=== PATIENT | male | born 1965 | race Caucasian/White ===

== ENCOUNTER 2017-10-05 23:47 | Emergency (ER) | payer SELFPAY ==
[~2017-10-05] VITALS: Ht 177.8 cm; Wt 100.2 kg
[2017-10-06 00:26] VITALS: Ht 177.8 cm; Wt 100.2 kg
[2017-10-06 08:04] VITALS: BP 153/94
== END 2017-10-06 09:20 | disposition home or self-care (01) ==
LOC: ED 23:47
DX: T84.028A Dislocation of other internal joint prosthesis, initial encounter (principal); I10 Essential (primary) hypertension
CPT/HCPCS: Q0092

== ENCOUNTER 2017-10-16 15:40 | Inpatient (IN) | payer MEDICAID ==
[~2017-10-16] VITALS: Ht 180.3 cm; Wt 98.2 kg
[2017-10-16 16:49] LABS: CALCIUM 8.7 mg/dL (8.5-10.1); CARBON DIOXIDE 22.7 mmol/L (21-32); CHLORIDE SERUM 103 mmol/L (98-107); CREATININE SERUM 1.2 mg/dL (0.7-1.3); GFR1 > 60 mL/min; GLUCOSE SERUM 119 mg/dL (74-106); POTASSIUM SERUM 3.6 mmol/L (3.5-5.1); SODIUM SERUM 138 mmol/L (136-145)
[2017-10-16 16:53] LABS: ALBUMIN 3.7 g/dL (3.4-5.0); ALKALINE PHOSPHATASE 60 U/L (46-116); ALT/SGPT 20 U/L (16-63); AST/SGOT 15 U/L (15-37); BILIRUBIN TOTAL 0.69 mg/dL (0.20-1.00); TOTAL PROTEIN, SERUM 7.4 g/dL (6.4-8.2)
[2017-10-16 16:56] LABS: AMPHETAMINE QUAL UR NONE DETECTED (NEG <=1000)
[2017-10-16 16:57] LABS: BASOPHIL % 1.5 % (0-2); PLATELET COUNT 250 x10^3mcL (130-400); RED CELL DISTRIBUTION WIDTH 13.6 % (11.5-14.5)
[2017-10-16] MEDS ORDERED: LISINOPRIL10 MG PO (22:45)
[2017-10-16] MEDS ORDERED: MOT600 PO (22:46)
[2017-10-16 23:32] VITALS: BP 107/77
[2017-10-17 00:36] LABS: PHOSPHOROUS 3.1 mg/dL (2.5-4.9)
[2017-10-17 00:37] LABS: T3 TOTAL 1.35 ng/mL
[2017-10-17 00:43] LABS: FREE T4 1.42 ng/dL (0.76-1.46); FREE THYROXINE INDEX 3.9 ug/dL (1.4-4.5); T4(THYROXINE) 11.1 ug/dL (4.7-13.3)
[2017-10-17 02:01] LABS: microscopic required? YES; urine erythrocyte 1+ (NEGATIVE)
[2017-10-17 02:18] VITALS: BP 107/77
[2017-10-17 05:37] VITALS: BP 99/52
[2017-10-17 07:47] LABS: CALCIUM 8.1 mg/dL (8.5-10.1); CARBON DIOXIDE 21.2 mmol/L (21-32); CHLORIDE SERUM 103 mmol/L (98-107); CREATININE SERUM 0.9 mg/dL (0.7-1.3); GFR1 > 60 mL/min; GLUCOSE SERUM 114 mg/dL (74-106); MAGNESIUM 1.8 mg/dL (1.8-2.4); PHOSPHOROUS 3.1 mg/dL (2.5-4.9); POTASSIUM SERUM 3.7 mmol/L (3.5-5.1); SODIUM SERUM 135 mmol/L (136-145)
[2017-10-17 07:59] LABS: BASOPHIL % 0.6 % (0-2); PLATELET COUNT 193 x10^3mcL (130-400); RED CELL DISTRIBUTION WIDTH 13.9 % (11.5-14.5)
[2017-10-17 08:09] VITALS: BP 122/76
[2017-10-17 14:00] VITALS: BP 157/91
[2017-10-17 17:34] VITALS: BP 121/71
[2017-10-17 22:01] VITALS: BP 101/53
[2017-10-18 06:02] VITALS: BP 123/69
[2017-10-18 07:13] LABS: BASOPHIL % 0.8 % (0-2); PLATELET COUNT 172 x10^3mcL (130-400); RED CELL DISTRIBUTION WIDTH 14.1 % (11.5-14.5)
[2017-10-18 07:18] LABS: CALCIUM 8.1 mg/dL (8.5-10.1); CARBON DIOXIDE 26.5 mmol/L (21-32); CHLORIDE SERUM 107 mmol/L (98-107); CREATININE SERUM 0.8 mg/dL (0.7-1.3); GFR1 > 60 mL/min; GLUCOSE SERUM 105 mg/dL (74-106); PHOSPHOROUS 3.3 mg/dL (2.5-4.9); POTASSIUM SERUM 4.6 mmol/L (3.5-5.1); SODIUM SERUM 141 mmol/L (136-145)
[2017-10-18 07:55] VITALS: BP 122/73
[2017-10-18 12:30] VITALS: BP 113/74
[2017-10-18 17:55] VITALS: BP 135/84
[2017-10-18 21:50] VITALS: BP 111/66
[2017-10-19 06:40] VITALS: BP 119/75
[2017-10-19 07:30] LABS: BASOPHIL % 1.1 % (0-2); PLATELET COUNT 188 x10^3mcL (130-400); RED CELL DISTRIBUTION WIDTH 14.5 % (11.5-14.5)
[2017-10-19 07:44] LABS: CALCIUM 8.5 mg/dL (8.5-10.1); CARBON DIOXIDE 26.6 mmol/L (21-32); CHLORIDE SERUM 108 mmol/L (98-107); CREATININE SERUM 0.7 mg/dL (0.7-1.3); GFR1 > 60 mL/min; GLUCOSE SERUM 94 mg/dL (74-106); PHOSPHOROUS 4.1 mg/dL (2.5-4.9); POTASSIUM SERUM 3.9 mmol/L (3.5-5.1); SODIUM SERUM 144 mmol/L (136-145)
[2017-10-19 09:00] VITALS: BP 113/76
[2017-10-19 13:00] VITALS: BP 130/73
[2017-10-19 21:26] VITALS: BP 120/69
[2017-10-20 05:38] VITALS: BP 132/84
[2017-10-20 07:23] LABS: BASOPHIL % 0.6 % (0-2); PLATELET COUNT 222 x10^3mcL (130-400)
[2017-10-20 07:45] LABS: CALCIUM 8.7 mg/dL (8.5-10.1); CARBON DIOXIDE 28.5 mmol/L (21-32); CHLORIDE SERUM 105 mmol/L (98-107); CREATININE SERUM 0.9 mg/dL (0.7-1.3); GFR1 > 60 mL/min; GLUCOSE SERUM 86 mg/dL (74-106); MAGNESIUM 1.9 mg/dL (1.8-2.4); PHOSPHOROUS 4.2 mg/dL (2.5-4.9); POTASSIUM SERUM 4.2 mmol/L (3.5-5.1); SODIUM SERUM 142 mmol/L (136-145)
[2017-10-20 09:26] VITALS: BP 109/70
[2017-10-20 12:44] VITALS: Ht 180.3 cm; Wt 98.2 kg
[2017-10-20 17:15] VITALS: BP 140/83
[2017-10-20 21:41] VITALS: BP 122/82
[2017-10-21 05:17] VITALS: BP 127/90
[2017-10-21 07:17] LABS: BASOPHIL % 0.9 % (0-2); PLATELET COUNT 243 x10^3mcL (130-400); RED CELL DISTRIBUTION WIDTH 13.9 % (11.5-14.5)
[2017-10-21 07:34] LABS: CHLORIDE SERUM 104 mmol/L (98-107); CREATININE SERUM 0.8 mg/dL (0.7-1.3); GFR1 > 60 mL/min; GLUCOSE SERUM 92 mg/dL (74-106); PHOSPHOROUS 3.9 mg/dL (2.5-4.9); POTASSIUM SERUM 4.5 mmol/L (3.5-5.1); SODIUM SERUM 140 mmol/L (136-145)
[2017-10-21] MEDS ORDERED: TRA50 PO (12:10)
[2017-10-21] MEDS ORDERED: EFF75 PO (12:10)
[2017-10-21] MEDS ORDERED: SERO100 PO (12:10)
[2017-10-21 12:53] VITALS: BP 127/90
== END 2017-10-21 13:25 | DRG 113 ==
LOC: ED 15:40 → DU 22:31 → MU 22:31 → DU 22:56 → MU 10-18 13:48
PROVIDERS: Emergency Medicine; Family Medicine
DX: J09.X2 Influenza due to identified novel influenza A virus with other respiratory manifestations (principal); N17.0 Acute kidney failure with tubular necrosis; R45.851 Suicidal ideations; F33.2 Major depressive disorder, recurrent severe without psychotic features; J44.1 Chronic obstructive pulmonary disease with (acute) exacerbation; F41.9 Anxiety disorder, unspecified; R73.03 Prediabetes; I10 Essential (primary) hypertension; E78.1 Pure hyperglyceridemia; F17.210 Nicotine dependence, cigarettes, uncomplicated; F15.10 Other stimulant abuse, uncomplicated; E66.9 Obesity, unspecified; Z68.30 Body mass index [BMI] 30.0-30.9, adult; Z59.0 Homelessness
CPT/HCPCS: 83880; 84439; 87804; G0480; J1956; J7030; J7620; Q0092